=== PATIENT | male | born 2000 | race Hispanic/Latino ===

== ENCOUNTER 2025-07-24 17:58 | Emergency (ER) | payer OTHER ==
[~2025-07-24] VITALS: Ht 185.4 cm; Wt 132.0 kg
--- NOTE | 2025-07-24 18:12 | ERN ---
ED Note History of Present Illness Stated Complaint: LEFT KNEE PAIN Chief Complaint: Knee Injury/Swelling Time Seen by MD: 17:59 Time Seen by Midlevel: 17:59 Dictation: The patient is a 25-year-old male with a history of diabetes, liver disease, TMJ who presents to the emergency department with complaints of left knee injury onset prior to arrival. Patient reports he was turning in his chair and hit a beam. Allergies: Coded Allergies: ketorolac (Unverified Allergy, Unknown, 07/24/25) Past Medical History Past Medical History: Diabetes-Type II, Hypertension, Liver Disease Additional Past Medical Hx: SCIATICA, BACK PAIN, TMJ Surgical History: None RN Note Reviewed/Agreed w/PFSH: Yes Review of System Dictation Constitutional: Negative for fever,chills, and weight loss Eyes: Negative for injury, pain,redness, and discharge ENT: Negative for injury,pain or swelling Cardiovascular: Negative for chest pain, palpitations, and edema Respiratory: Negative for shortness of breath, cough, and wheezing, Abdomen/GI: Negative for abdominal pain, nausea, vomiting, diarrhea, and constipation Back: Negative for injury and pain : Negative for injury, bleeding and discharge MS/Extremity: Positive for left knee injury Skin: Negative for rash, and discoloration Neuro: Negative for headache, weakness, numbness, tingling, and seizure Psych: Negative for suicide ideation, homicidal ideation, and hallucinations Initial Vital Sign VS Vital Signs Date Time Temp Pulse Resp B/P (MAP) Pulse Ox O2 Delivery O2 Flow Rate FiO2 07/24/25 17:59 98.2 92 16 153/91 99 Room Air 0 07/24/25 18:07 21 Physical Exam Dictation Vital Signs reviewed General Appearance: Alert, oriented x 3, no acute distress, well developed, nourished. Head and Face: non-traumatic. Eyes: PERRL, pink conjunctivas, eyelid no trauma, anterior chamber with arcus senilis. Ears: Pinnas intact and no signs of trauma or erythema ear canals clear and no d ischarge TM no erythema Nose: No discharge, no bleeding. Oropharynx: Mouth normal, tongue pink. pharynx clear,no erythema, tonsils no exudates, no abscesses noted, mucous membrane moist Neck: Supple, non-tender, no thyromegaly, no masses, no JVD, no bruits Breast:Deferred Chest:No tenderness, no crepitus, no paradoxical movement, no retractions Lungs:Clear, well-ventilated, symmetric, no rales, no wheezing, no rhonchi, no stridor, good breath sounds bilaterally Heart: Regular rate, regular rhythm, no murmur, no gallops Vascular: no peripheral edema, dorsalis pedis 3+ to left lower extremity Abdomen: Soft, positive bowel sounds, nondistended, no guarding, nontender, no rebound, no masses no hepatomegaly, no splenomegaly, no Webb's sign, no hernias. Rectal: Deferred Genital: Deferred Neurological: Normal speech, motor function intact, sensory function intact Musculoskeletal: Neck nontender, full range of motion, back nontender, full range of motion, Extremities: nontender, full range of motion Skin: Color pink, dry, no turgor, no rash, no lacerations, no contusions. Small abrasion to left knee less than 0.5 cm, no active bleeding Lymphatic: Deferred Results (Laboratory/Radiology) Laboratory/Radiology REASON: injury ORDERING PHYSICIAN: GIACOMO SNYDER PROCEDURE: KNEE 3V LT - KNEE 3VWS LT EXAM: CR right Knee, 3 View. CLINICAL HISTORY: injury COMPARISON: None provided. FINDINGS: BONES: No acute fracture or aggressive appearing osseous lesion. JOINTS: The joint spaces show no significant degenerative disease. There is no joint effusion appreciated. SOFT TISSUES: The soft tissues are unremarkable. IMPRESSION: No acute osseous pathology evident. /[place] [facility] Reviewed?: Yes ED Course ED Course Orders Procedure Category Date Status Time Knee 3vws Lt RAD 07/24/25 Resulted 18:09 Acetaminophen 500mg PHA 07/24/25 Complete Tab (Tylenol 500mg T 18:30 Apply Homer Wrap (Er) CPOE 07/24/25 Transmitted 19:46 Current Medications Medications (Trade) Dose Ordered Sig/Taryn Route PRN Reason Start Time Stop Time Status Last Admin Dose Admin Acetaminophen (TYLenol 500MG TAB) 1,000 mg ONCE ONCE PO 07/24/25 18:30 07/24/25 18:31 DC 07/24/25 18:23 Vital Signs Date Time Temp Pulse Resp B/P (MAP) Pulse Ox O2 Delivery O2 Flow Rate FiO2 07/24/25 20:02 98.2 75 16 141/64 99 Room Air* 0 21 07/24/25 19:29 98.2 81 16 136/75 99 Room Air* 0 21 07/24/25 18:07 98.2 88 16 147/88 99 Room Air* 0 21 07/24/25 17:59 98.2 92 16 153/91 99 Room Air 0 Medical Decision Making MDM The patient is a 25-year-old male with a history of diabetes, liver disease, TMJ who presents to the emergency department with complaints of left knee injury onset prior to arrival. Patient reports he was turning in his chair and hit a beam. Differential diagnosis: Knee contusion, knee abrasion, knee fracture Need for hospitalization: Patient does not meet criteria for hospitalization. There are no social concerns with this patient. DX & DISP Disposition: Discharge Departure Impression: Primary Impression: Contusion of left knee Condition: Stable Additional Instructions: Your x-rays did not show any fractures. Please follow up with your primary doctor in 1-2 days. Keep wound clean and dry. If anything worsens please return to ER. FOLLOW-UP WITH PRIMARY CARE PROVIDER IN 1 TO 2 DAYS. TAKE MEDICATIONS DIRECTED HERE IN THE EMERGENCY ROOM. OKAY TO CONTINUE HOME MEDICATIONS UNLESS OTHERWISE DISCUSSED DURING YOUR VISIT IN THE EMERGENCY ROOM TODAY. RETURN TO YOUR NEAREST EMERGENCY ROOM IF SYMPTOMS WORSEN OR IF THERE IS NO IMPROVEMENT. CALL 911 IF YOU NEED IMMEDIATE ASSISTANCE. TAKE TYLENOL [id number] NEE DED AND IF NO CONTRAINDICATIONS ARE PRESENT. INCREASE ORAL HYDRATION. A WOUND CULTURE OR URINE CULTURE WAS ORDERED HERE IN THE EMERGENCY ROOM DEPARTMENT PLEASE FOLLOW-UP WITH PRIMARY CARE PROVIDER AND ADVISE THEM TO GET REPEAT PORTS FROM OUR FACILITY. IF YOU HAD ANY HOMER WRAP/SPLINTS THAT WERE APPLIED HERE, PLEASE DO NOT REMOVE THEM UNTIL YOU SEE YOUR PRIMARY CARE OR SPECIALTY. Time of Disposition: 19:48 I have reviewed the case, and I agree with, Diagnosis and Plan GIACOMO SNYDER Jul 24, 2025 18:12
--- NOTE | 2025-07-24 19:59 | HMCIMG ---
EXAM: CR right Knee, 3 View. CLINICAL HISTORY: injury COMPARISON: None provided. FINDINGS: BONES: No acute fracture or aggressive appearing osseous lesion. JOINTS: The joint spaces show no significant degenerative disease. There is no joint effusion appreciated. SOFT TISSUES: The soft tissues are unremarkable. IMPRESSION: No acute osseous pathology evident. /[place]
[2025-07-24 20:02] VITALS: BP 141/64; PULSE 75; RESP 16; TEMP 98.2; O2SAT 99
== END 2025-07-24 20:04 | disposition home or self-care (01) ==
LOC: EDH 17:58
DX: S80.02XA Contusion of left knee, initial encounter (principal); E11.9 Type 2 diabetes mellitus without complications; I10 Essential (primary) hypertension; W22.09XA Striking against other stationary object, initial encounter; Y93.89 Activity, other specified; Y92.89 Other specified places as the place of occurrence of the external cause; Y99.8 Other external cause status
CPT/HCPCS: 73562; 99283